=== PATIENT | male | born 1985 | race Caucasian/White ===

== ENCOUNTER 2016-06-19 15:18 | Emergency (ER) | payer BC ==
[~2016-06-19] VITALS: Ht 177.8 cm; Wt 88.2 kg
[2016-06-19 15:24] VITALS: BP 139/96
[2016-06-19] MEDS ORDERED: KEFLEX500 MG PO (16:56)
[2016-06-19] MEDS ORDERED: NORCO 5/3251 TABLET PO (16:56)
== END 2016-06-19 17:36 | disposition home or self-care (01) ==
LOC: EME 15:18
DX: S61.021A Laceration with foreign body of right thumb without damage to nail, initial encounter (principal); W45.8XXA Other foreign body or object entering through skin, initial encounter
CPT/HCPCS: 99281; 99284

== ENCOUNTER 2017-08-11 16:45 | Emergency (ER) | payer BC ==
[~2017-08-11] VITALS: Ht 175.3 cm; Wt 92.6 kg
[~2017-08-11 16:45] MED LIST: KEFLEX500 MG PO; NORCO 5/3251 TABLET PO
[2017-08-11 18:15] LABS: HEMATOCRIT 44.9 % (38.0-50.0); MCH 29.6 PG (29.0-34.0); MCHC 35.6 G/DL (30.0-36.0); MCV 83.1 FL (86-99); PLATELET COUNT 273 K/uL (156-360); RBC DIS.WIDTH-CV 12.6 % (11.8-14.6); WHITE BLOOD COUNT 7.3 K/uL (4.1-10.2)
[2017-08-11 18:31] LABS: ALBUMIN 4.5 g/dL (3.2-4.8)
[2017-08-11 18:32] LABS: CHLORIDE 102 mEq/L (99-109); POTASSIUM 4.2 mEq/L (3.7-5.4); SODIUM 138 mEq/L (136-147)
[2017-08-11 18:34] LABS: GLUCOSE 116 mg/dL (70-99); TOTAL PROTEIN 7.5 g/dL (6.4-8.3)
[2017-08-11 18:36] LABS: TOTAL BILIRUBIN 0.4 mg/dL (0.0-1.0)
[2017-08-11 18:37] LABS: ALKALINE PHOSPHATASE 53 IU/L (3-129)
[2017-08-11 18:38] LABS: CREATININE 1.3 mg/dL (0.6-1.3); GFR ESTIMATE (CALCULATED) > 59 mL/min/ (58.99-99999)
[2017-08-11 18:39] LABS: AST (GOT) 24 IU/L (2-34); UREA NITROGEN (BUN) 19 mg/dL (9-23)
[2017-08-11 18:41] LABS: ALT (GPT) 32 IU/L (3-49)
[2017-08-11] MEDS ORDERED: ATARAX,VISTARIL50 MG PO (19:21)
[2017-08-11 19:33] VITALS: BP 131/84
== END 2017-08-11 19:34 | disposition home or self-care (01) ==
LOC: EME 16:45
PROVIDERS: Nurse Practitioner Family
DX: R00.0 Tachycardia, unspecified (principal); F41.9 Anxiety disorder, unspecified; L03.115 Cellulitis of right lower limb; I10 Essential (primary) hypertension; Z88.0 Allergy status to penicillin
CPT/HCPCS: 80053; 85027; 93005; 99281; 99285; Q0177

== ENCOUNTER 2017-10-16 19:04 | Emergency (ER) | payer BC ==
[~2017-10-16] VITALS: Ht 175.3 cm; Wt 93.3 kg
[~2017-10-16 19:04] MED LIST changes: +ATARAX,VISTARIL50 MG PO
[2017-10-16 21:40] LABS: BASOPHIL (%) 0.9 % (0-1); BASOPHIL COUNT 0.1 K/uL (0-0.1); EOSINOPHIL (%) 0.8 % (0-5); EOSINOPHIL COUNT 0.1 K/uL (0-0.3); HEMATOCRIT 46.1 % (38.0-50.0); HEMOGLOBIN 16.4 G/DL (12.5-16.6); IMMATURE GRANULOCYTE (%) 0.5 % (0.0-0.7); LYMPHOCYTE COUNT 1.7 K/uL (1.0-2.8); MCH 29.9 PG (29.0-34.0); MCHC 35.6 G/DL (30.0-36.0); MCV 84.1 FL (86-99); MONOCYTE (%) 7.3 % (3-12); MONOCYTE COUNT 1.1 K/uL (0-0.8); NEUTROPHIL (%) 79.5 % (45-76); NEUTROPHIL COUNT 12.2 K/uL (1.8-6.4); PLATELET COUNT 298 K/uL (156-360); RBC DIS.WIDTH-SD 39.7 % (39-53); RED BLOOD COUNT 5.48 M/uL (4.00-5.50); WHITE BLOOD COUNT 15.3 K/uL (4.1-10.2)
[2017-10-16 21:48] LABS: CHLORIDE 103 mEq/L (99-109); D-DIMER ELISA < 150.00 ng/mLDDU (<230); POTASSIUM 3.7 mEq/L (3.7-5.4); SODIUM 141 mEq/L (136-147)
[2017-10-16 21:49] LABS: GLUCOSE 107 mg/dL (70-99)
[2017-10-16 21:53] LABS: CREATININE 1.3 mg/dL (0.6-1.3); GFR ESTIMATE (CALCULATED) > 59 mL/min/ (58.99-99999)
[2017-10-16 21:54] LABS: UREA NITROGEN (BUN) 15 mg/dL (9-23)
[2017-10-16] MEDS ORDERED: NAPROSYN500 MG PO (22:27)
[2017-10-16] MEDS ORDERED: VIBRAMYCIN100 MG PO (22:27)
[2017-10-16] MEDS ORDERED: CIPRO500 MG PO (22:28)
[2017-10-17 00:03] VITALS: BP 137/86
== END 2017-10-17 00:04 | disposition home or self-care (01) ==
LOC: EME 19:04 → EXP 19:04
PROVIDERS: Physician Assistant
DX: L03.115 Cellulitis of right lower limb (principal); B35.3 Tinea pedis; R10.31 Right lower quadrant pain; Z88.0 Allergy status to penicillin
CPT/HCPCS: 80048; 85025; 85379; 99281; 99284